=== PATIENT | female | born 1965 | race Caucasian/White ===

== ENCOUNTER 2019-07-10 11:12 | Emergency (ER) | payer BC ==
[~2019-07-10] VITALS: Ht 170.2 cm; Wt 74.8 kg
[2019-07-10] MEDS ORDERED: KETOROLAC TROMETHAMINE INJ 60 MG/2 ML VIAL IM ONE (12:40)
[2019-07-10] MEDS: KETOROLAC TROMETHAMINE INJ 60 MG/2 ML VIAL IM ONE (13:01)
--- NOTE | 2019-07-10 13:05 | NUR ---
DAVID FROM THE GYM C/O R KNEE PAIN "I HEARD POPPING SOUND WHILE STRECHING". PT AAOX4, VSS. RR EVEN & UNLABORED. DENIES ANY OTHER DISCOMFORT AT THIS TIME. WILL CONT TO MONITOR. MEDICATED FOR PAIN PER PA'S ORDER. PT JOEL WELL.
--- NOTE | 2019-07-10 13:47 | NUR ---
EVI RN, [facility] CALLED TO SPEAK WITH THE PATIENT PER DR HARRIS REGARDING MRI. PATIENT REQUESTED TO TALK TO ADMINISTRATION
[2019-07-10] MEDS ORDERED: ACETAMINOPHEN ES 500 MG TABLET ONE (16:51)
[2019-07-10] MEDS: ACETAMINOPHEN 325 MG TABLET PO ONE (17:18)
--- NOTE | 2019-07-10 17:30 | NUR ---
Patient discharged to home in stable condition. Written and verbal after care instructions given. Patient verbalizes understanding of instruction.
[2019-07-10 19:19] VITALS: BP 124/78
== END 2019-07-10 17:30 | disposition home or self-care (01) ==
LOC: ER 11:16
DX: M25.561 Pain in right knee (principal); M25.551 Pain in right hip; Z96.641 Presence of right artificial hip joint; Z60.2 Problems related to living alone
CPT/HCPCS: 29505; 73502; 73564; 96372; 99283; J1885